=== PATIENT | female | born 1995 | race African-American/Black ===

== ENCOUNTER 2018-07-13 20:25 | Emergency (ER) | payer MEDICAID, OTHER ==
[~2018-07-13] VITALS: Ht 160 cm; Wt 71.7 kg
[2018-07-13 20:37] VITALS: BP 146/92
[2018-07-13] MEDS ORDERED: DEXAMETHASONE 4 MG TABLET ONE (20:54)
[2018-07-13] MEDS ORDERED: DEXAMETHASONE 4 MG TABLET PO ONE (21:00)
== END 2018-07-13 21:53 | disposition home or self-care (01) ==
LOC: ED 21:50
DX: J02.8 Acute pharyngitis due to other specified organisms (principal); R05 Cough
CPT/HCPCS: 71046; 87081; 87880; 99285